=== PATIENT | male | born 1985 | race Caucasian/White ===

== ENCOUNTER 2024-10-27 12:58 | Emergency (ER) | payer OTHER, SELFPAY ==
[2024-10-27] VITALS (26 sets, daily range): BP systolic 100–155; BP diastolic 53–81; PULSE 56–76; RESP 12–24; TEMP 37; O2SAT 95–98; BMI 38.5
--- NOTE | 2024-10-27 13:04 | DI.RAD.S_ITS ---
PROCEDURE: XR CHEST 1V INDICATIONS: chest pain TECHNIQUE: One view of the chest was acquired. COMPARISON: None. FINDINGS: Surgical changes and devices: Punctate metallic density overlying the right C7 pedicle. Lungs and pleura: Lungs are clear. No pleural effusions or pneumothorax. Mediastinum: Mediastinal contours appear normal. Heart size is normal. Bones and chest wall: No suspicious bony lesions. Overlying soft tissues appear unremarkable. IMPRESSION: No acute cardiothoracic process. Dictated by: Delvin Underwood M.D. on 10/27/2024 at 13:40 Approved by: Delvin Underwood M.D. on 10/27/2024 at 13:40
[2024-10-27] MEDS: ASPIRIN 81 MG CHEW TAB 324 MG PO (13:08)
--- NOTE | 2024-10-27 13:08 | EKG_ITS ---
[address] [address] Test Date: 2024-10-27 Pat Name: Greg Cisse Department: Room: Gender: Male Level Vial Curvature Gauger: LUISA : 1985 Requested By: Order Number: [id number] Reading MD: Jose Lazo MD Measurements Intervals [place] Rate: 67 P: 45 AL: 158 QRS: -6 QRSD: 94 T: 31 QT: 376 QTc: 397 Interpretive Statements Normal sinus rhythm Electronically Signed On 10-27-2024 14:43:48 PDT by Jose Lazo MD
[2024-10-27 13:28] LABS: INR 1.1 (0.9-1.3)
[2024-10-27 13:31] LABS: PTT Partial Thromboplastin Tim 40 SECONDS (25.1-36.5)
[2024-10-27 13:32] LABS: Alanine Aminotransferase 65 IU/L (<50); Albumin 4.4 g/dL (3.5-5.0); Albumin Globulin Ratio 1.4 (1.0-2.8); Alkaline Phosphatase 56 U/L (38-126); Aspartate Aminotransferase 60 IU/L (17-59); BUN Creatinine Ratio 16.7 (6-22); Bilirubin Total 1.2 mg/dL (0.2-1.3); Blood Urea Nitrogen 17 mg/dL (9-20); Calcium 8.9 mg/dL (8.4-10.2); Carbon Dioxide 21 mmol/L (22-32); Chloride 106 mmol/L (98-107); Creatine Kinase 262 U/L (55-170); Estimated Glomerular Filt Rate > 60 mL/min (>60); Globulin 3.2 g/dL (1.7-4.1); Glucose 84 mg/dL (70-99); Lipase 122 U/L (23-300); Magnesium 1.6 mg/dL (1.6-2.3); Potassium 4.7 mmol/L (3.4-5.1); Sodium 138 mmol/L (137-145); Total Protein 7.6 g/dL (6.3-8.2)
[2024-10-27 13:35] LABS: Add Manual Diff / Slide Review NO; Basophils Absolute Auto 100 /uL (0-100); Basophils Percent Auto 0.9 % (0-2); Eosinophils Absolute Auto 200 /uL (0-450); Hematocrit 43.8 % (41-53); Hemoglobin 14.6 g/dL (13.5-17.5); Lymphocytes Absolute Auto 2900 /uL (1100-4500); Lymphocytes Percent Auto 34.9 % (25-40); Mean Corpuscular HGB Conc 33.3 % (30-36); Mean Corpuscular Hemoglobin 30.7 PG (26-34); Mean Corpuscular Volume 92.2 fL (80-100); Monocytes Absolute Auto 800 /uL (0-900); Neutrophils Absolute Auto 4400 /uL (1500-7000); Neutrophils Percent Auto 53.2 % (50-75); Platelet Count 203 X10^3/uL (150-400); Red Blood Cell Count 4.76 X10^6/uL (4.5-5.9); Red Cell Distribution Width 13.8 % (11.6-14.8); White Blood Cell Count 8.3 X10^3/uL (4.5-11.0)
[2024-10-27 13:37] LABS: HEMOLYSIS 104 (0-50)
[2024-10-27 13:44] LABS: NT-proBNP (BNP-Adult 18+) < 20 pg/mL (<125)
--- NOTE | 2024-10-27 14:09 | ED.CHESTPAIN ---
HPI - Chest Pain General Chief Complaint: Chest Pain Stated Complaint: Chest pain Time Seen by Provider: 10/27/24 13:31 Source: patient Mode of arrival: Ambulatory Limitations: no limitations History of Present Illness HPI narrative: Patient here for brief chest pain during cardiac rehab session today. Left-sided chest pain. No nausea no syncope no dizziness. Currently chest pain-free. Patient had 2 stents placed in June 2024 at [facility]. Patient sees Dr. Liu cardiology at [facility]. Patient in no distress at this time. Patient has strong family history of coronary artery disease at young ages. Related Data Allergies Allergy/AdvReac Type Severity Reaction Status Date / Time No Known Drug Allergies Allergy Verified 10/27/24 13:23 Review of Systems Review of Systems Narrative: GENERAL: Negative chills, fatigue, malaise, fever, sweats. HEENT: Negative sinus pain, ear pain, sore throat RESPIRATORY: Negative dyspnea, cough CARDIOVASCULAR: Positive chest pain, negative palpitations GASTROINTESTINAL: Negative vomiting, nausea, abdominal pain : Negative dysuria, frequency, hematuria MUSCULOSKELETAL: Negative muscle or bony pain SKIN: Negative rash, skin lesions NEUROLOGIC: Negative weakness, numbness ROS Unobtainable: All systems reviewed & are unremarkable except as noted in HPI and below Patient History Social History Smoking Status: Current every day smoker Smoking Status: Current every day smoker tobacco type: cigarettes Exam Narrative Exam Narrative: GENERAL: in no distress, not toxic not dyspneic HEAD: Normocephalic. EYES: Pupils equal round ENT: Mucous membranes moist. NECK: Trachea midline. CARDIOVASCULAR: Regular rate and rhythm RESPIRATORY: Clear to auscultation. Breath sounds equal bilaterally. No wheezes, rales, or rhonchi. GASTROINTESTINAL: Abdomen soft, non-tender EXTREMITIES: No gross deformities. BACK: No flank tenderness. NEURO: AOx4. Clear speech SKIN: Warm and dry PSYCH: Not anxious, is cooperative Initial Vital Signs Initial Vital Signs: Vital Signs Temperature 98.6 F 10/27/24 13:13 Pulse Rate 76 10/27/24 13:13 Respiratory Rate 12 10/27/24 13:13 Blood Pressure 141/81 H 10/27/24 13:13 Pulse Oximetry 98 10/27/24 13:13 Oxygen Delivery Method Room Air 10/27/24 13:13 Course Orders Ordered: Discontinued Medications Aspirin (Aspirin 81 Mg Chew Tab) 324 mg PO NOW ONE Stop: 10/27/24 13:05 Last Admin: 10/27/24 13:08 Dose: 324 mg Documented By: ANTOINE Heparin Sodium (Porcine) (Heparin 5,000 Unit/Ml Vial) 5,000 unit IV NOW ONE Stop: 10/27/24 14:14 Last Admin: 10/27/24 14:20 Dose: 5,000 unit Documented By: PAOLO Heparin Sodium/Dextrose (Heparin Drip) 25,000 unit in 500 mls @ 19.867 mls/hr IV CONT EMILY; Protocol Last Titration: 10/28/24 01:21 Dose: 7.35 units/kg/hr, 20 mls/hr Documented By: BARRY Co-signed By: ANTOINE(2) Admin: 10/27/24 14:20 Dose: 7.35 units/kg/hr, 20 mls/hr Documented By: PAOLO Co-signed By: CYNDI Vital Signs Vital signs: Vital Signs - 8 hr 10/27/24 13:13 10/27/24 14:11 10/27/24 14:13 Temperature 98.6 F Pulse Rate 76 61 Respiratory Rate 12 22 Blood Pressure 141/81 H 139/69 Pulse Oximetry 98 96 Oxygen Delivery Method Room Air 10/27/24 14:13 10/27/24 14:30 10/27/24 14:30 Temperature Pulse Rate 61 64 Respiratory Rate 16 Blood Pressure 155/79 H Pulse Oximetry 97 97 Oxygen Delivery Method 10/27/24 15:00 10/27/24 15:00 10/27/24 15:30 Temperature Pulse Rate 56 L Respiratory Rate 15 Blood Pressure 135/62 125/59 L Pulse Oximetry 97 Oxygen Delivery Method 10/27/24 15:30 Temperature Pulse Rate 58 L Respiratory Rate 15 Blood Pressure Pulse Oximetry 98 Oxygen Delivery Method MDM - Chest Pain Lab Data 10/27/24 13:26 10/27/24 13:10 Labs: Lab Results 10/27/24 10/27/24 10/27/24 Range/Units 13:10 13:26 15:35 WBC 8.3 (4.5-11.0) X10^3/uL RBC 4.76 (4.5-5.9) X10^6/uL Hgb 14.6 (13.5-17.5) g/dL Hct 43.8 (41-53) % MCV 92.2 (80-100) fL MCH 30.7 (26-34) PG MCHC 33.3 (30-36) % RDW 13.8 (11.6-14.8) % Plt Count 203 (150-400) X10^3/uL Neut % (Auto) 53.2 (50-75) % Lymph % (Auto) 34.9 (25-40) % [place] % (Auto) 9.0 (3-14) % Eos % (Auto) 2.0 (2-4) % Baso % (Auto) 0.9 (0-2) % Neut # (Auto) 4400 (6993-7522) /uL Lymph # (Auto) 2900 (0892-7591) /uL [place] # (Auto) 800 (0-900) /uL Eos # (Auto) 200 (0-450) /uL Baso # (Auto) 100 (0-100) /uL PT 12.0 (9.4-12.5) SECONDS INR 1.1 (0.9-1.3) APTT 40 H (25.1-36.5) SECONDS Sodium 138 (137-145) mmol/L Potassium 4.7 (3.4-5.1) mmol/L Chloride 106 (98-107) mmol/L Carbon Dioxide 21 L (22-32) mmol/L BUN 17 (9-20) mg/dL Creatinine 1.02 (0.66-1.25) mg/dL Estimated GFR > 60 (>60) mL/min BUN/Creatinine Ratio 16.7 (6-22) Glucose 84 (70-99) mg/dL Calcium 8.9 (8.4-10.2) mg/dL Magnesium 1.6 (1.6-2.3) mg/dL Total Bilirubin 1.2 (0.2-1.3) mg/dL AST 60 H (17-59) IU/L ALT 65 H (<50) IU/L Alkaline Phosphatase 56 (38-126) U/L Total Creatine Kinase 262 H (55-170) U/L Troponin I 0.070 H 0.051 H (0.01-0.034) ng/mL NT-Pro-B Natriuret Pep < 20 (<125) pg/mL Total Protein 7.6 (6.3-8.2) g/dL Albumin 4.4 (3.5-5.0) g/dL Globulin 3.2 (1.7-4.1) g/dL Albumin/Globulin Ratio 1.4 (1.0-2.8) Lipase 122 (23-300) U/L // Range/Units 20:15 WBC (4.5-11.0) X10^3/uL RBC (4.5-5.9) X10^6/uL Hgb (13.5-17.5) g/dL Hct (41-53) % MCV (80-100) fL MCH (26-34) PG MCHC (30-36) % RDW (11.6-14.8) % Plt Count (150-400) X10^3/uL Neut % (Auto) (50-75) % Lymph % (Auto) (25-40) % [place] % (Auto) (3-14) % Eos % (Auto) (2-4) % Baso % (Auto) (0-2) % Neut # (Auto) (4900-0909) /uL Lymph # (Auto) (7874-4419) /uL [place] # (Auto) (0-900) /uL Eos # (Auto) (0-450) /uL Baso # (Auto) (0-100) /uL PT (9.4-12.5) SECONDS INR (0.9-1.3) APTT 50 H D (25.1-36.5) SECONDS Sodium (137-145) mmol/L Potassium (3.4-5.1) mmol/L Chloride (98-107) mmol/L Carbon Dioxide (22-32) mmol/L BUN (9-20) mg/dL Creatinine (0.66-1.25) mg/dL Estimated GFR (>60) mL/min BUN/Creatinine Ratio (6-22) Glucose (70-99) mg/dL Calcium (8.4-10.2) mg/dL Magnesium (1.6-2.3) mg/dL Total Bilirubin (0.2-1.3) mg/dL AST (17-59) IU/L ALT (<50) IU/L Alkaline Phosphatase (38-126) U/L Total Creatine Kinase (55-170) U/L Troponin I (0.01-0.034) ng/mL NT-Pro-B Natriuret Pep (<125) pg/mL Total Protein (6.3-8.2) g/dL Albumin (3.5-5.0) g/dL Globulin (1.7-4.1) g/dL Albumin/Globulin Ratio (1.0-2.8) Lipase (23-300) U/L Imaging Data Chest x-ray: Radiologist's Impression: [address] [address] XRay Report Signed Patient: Greg Cisse MR#: [id number] : 1985 Acct:[id number] Age/Sex: 39 / M Date of Service: 10/27/24 Loc: ED Accession Number: [id number] Procedure: XR chest 1V Ordering Provider: Wicho Francisco MD PROCEDURE: XR CHEST 1V INDICATIONS: chest pain TECHNIQUE: One view of the chest was acquired. COMPARISON: None. FINDINGS: Surgical changes and devices: Punctate metallic density overlying the right C7 pedicle. Lungs and pleura: Lungs are clear. No pleural effusions or pneumothorax. Mediastinum: Mediastinal contours appear normal. Heart size is normal. Bones and chest wall: No suspicious bony lesions. Overlying soft tissues appear unremarkable. IMPRESSION: No acute cardiothoracic process. Dictated by: Delvin Underwood M.D. on 10/27/2024 at 13:40 Approved by: Delvin Underwood M.D. on 10/27/2024 at 13:40 [facility] Narrative Medical decision making narrative: Patient here for brief chest pain during cardiac rehab session today. Left-sided chest pain. No nausea no syncope no dizziness. Currently chest pain-free. Patient had 2 stents placed in June 2024 at [facility]. Patient sees Dr. Liu cardiology at [facility]. Patient in no distress at this time. Patient has strong family history of coronary artery disease at young ages. After history and exam, CBC CMP troponin EKG chest x-ray aspirin cardiac consult [facility] Medical records reviewed: Differential considered: Includes but not limited to Lab Test results independently reviewed as above. Pertinent findings: Troponin 0.07 Independently reviewed EKG normal sinus rhythm normal EKG rate 67 Imaging studies independently reviewed: Chest x-ray no acute finding Consultations: 2:00 p.m.. Spoke with [facility] Cardiology dr mcgowan, recommends transferring patient, try to go to [facility] if possible. 3:[address] Segura, cardiology at [facility]. There are no beds available but he does agree patient should be transferred. 3:[address] Mo with [facility]. Will accept patient, pending bed availability. 3:[address] Kolb, cardiology, who will accept patient, however no beds available at this time. Hospitalist to admit when bed available. Re-evaluations: 2:10 p.m.. Updated patient results and he does understand will need to be transferred to [facility] for observation possible heart catheterization 4:16 p.m. and updated patient. No beds available at [facility] at this time. He will need to go to in the hospital pending acceptance. Discussion: Appropriate for transfer for higher level of care we do not have cardiology services here. Patient remains chest pain-free. Aspirin and heparin has been started cardiology service has been contacted. Diagnosis: Non-STEMI 6:[address] Francisco: Sinus with Dr. Villa, patient has been accepted at [facility] but bed is pending. As well as [facility]. Patient is stable at this time. Patient on heparin drip for non-STEMI Critical Care Time Critical Care Time Attestation: Critical Care Time 35 minutes: Critical care time is separate from other billable procedures. This critical care time includes consultation with family and other consulting doctors, review of records, and interpretation of data from labs, EKGs, imaging, etc. Discharge Plan Departure Patient Disposition: [facility] Clinical Impression: Non-STEMI (non-ST elevated myocardial infarction) Referrals: Provider,Yves WITT [Primary Care Provider] -
[2024-10-27] MEDS: HEPARIN 5,000 UNIT/ML VIAL 5000 UNIT IV (14:20)
[2024-10-27] MEDS: HEPARIN DRIP 25,000 UNIT/500 ML IV.SOLN 20 UNIT IV (14:20)
[2024-10-27 16:09] LABS: Troponin I 0.051 ng/mL (0.01-0.034)
[2024-10-27 21:16] LABS: PTT Partial Thromboplastin Tim 50 SECONDS (25.1-36.5)
[2024-10-28] VITALS: BP 101/58; PULSE 63; RESP 16; O2SAT 95
[2024-10-28 00:23] VITALS: BP 110/62; PULSE 67; RESP 14; O2SAT 96
[2024-10-28 00:30] VITALS: BP 114/62; PULSE 58; RESP 14; O2SAT 97
[2024-10-28 01:00] VITALS: BP 101/55; PULSE 63; RESP 14; O2SAT 95
--- NOTE | 2024-10-28 03:13 | PC.NURSE ---
Report called to KATHERINE Henry at [phone]. Nurse has no further questions at this time, but was given call back number if primary nurse or charge nurse have questions.
== END 2024-10-28 01:33 | disposition short-term general hospital (02) ==
PROVIDERS: Emergency Provider Emergency Medicine
DX: I21.4 Non-ST elevation (NSTEMI) myocardial infarction (principal)
CPT/HCPCS: 36415; 71045; 80053; 82550; 83690; 83735; 83880; 84484; 85025; 85610; 85730; 93005; 93010; 96365; 96366; 96375; 99284; 99291; J1644

== ENCOUNTER 2024-12-15 12:30 | Outpatient (RCR) | payer OTHER, SELFPAY | END 2024-12-15 14:30 | LOC: CAR 12:30 | PROVIDERS: Referring Provider Nurse Practitioner Family; Visit Provider Nurse Practitioner Family | DX: I25.10 Atherosclerotic heart disease of native coronary artery without angina pectoris (principal) | CPT/HCPCS: 93798 ==